=== PATIENT | female | born 1965 | race Caucasian/White ===

== ENCOUNTER 2017-05-12 17:46 | Inpatient (IN) | payer BC ==
[~2017-05-12] VITALS: Ht 175.3 cm; Wt 104.5 kg
[~2017-05-12 17:46] MED LIST: AMPH30TA3 PO; CYCL-1 PO; IBUP-1986 PO; PANT-47 PO
[2017-05-12 19:04] LABS: URINE HCG NEGATIVE (NEG)
[2017-05-12 19:22] LABS: BASOPHILS % (AUTO) 0.2 % (0-1); EOSINOPHILS # (AUTO) 0.4 X10'3 (0-0.9); EOSINOPHILS % (AUTO) 2.9 % (0-6); HEMATOCRIT 46.2 % (35.0-45.0); HEMOGLOBIN 15.7 g/dl (12.0-16.0); LYMPHOCYTES # (AUTO) 2.2 X10'3 (1.1-4.8); LYMPHOCYTES % (AUTO) 17.7 % (21-51); MEAN CORPUSCULAR HEMOGLOBIN 29.7 PG (27.0-31.0); MEAN CORPUSCULAR VOLUME 87.2 FL (78-98); MEAN PLATELET VOLUME 8.2 FL (7.4-10.4); MONOCYTES # (AUTO) 1.1 X10'3 (0-0.9); MONOCYTES % (AUTO) 8.3 % (2-12); NEUTROPHILS % (AUTO) 70.9 % (42-75); PLATELET COUNT 341 X10'3 (140-440); RED BLOOD COUNT 5.29 X10'6 (4.20-5.60); WHITE BLOOD COUNT 12.7 X10'3 (4.5-11.0)
[2017-05-12 19:22] LABS: CLARITY,URINE CLEAR (Clear); GLUCOSE, URINE NEGATIVE (Neg); KETONES,URINE TRACE mg/dl (Neg); LEUKOCYTE ESTERASE ,URINE NEGATIVE (Neg); NITRITES, URINE NEGATIVE (Neg); OCCULT BLOOD,URINE SMALL (Neg); PH,URINE 5.5 (4.8-8.0); PROTEIN,URINE NEGATIVE (Neg); UROBILINOGEN,URINE 0.2 E.U/dL (0.2-1.0)
[2017-05-12 19:31] LABS: PARTIAL THROMBOPLASTIN TIME 29 SECONDS (22-32)
[2017-05-12 19:33] LABS: UA COLLECTION TYPE CLN CATCH MIDSTREAM
[2017-05-12 19:34] LABS: ALANINE AMINOTRANSFERASE 70 U/L (12-78); ALBUMIN 3.9 G/DL (3.4-5.0); ALBUMIN/GLOBULIN RATIO 0.9 (1.1-1.5); ALKALINE PHOSPHATASE 90 IU/L (46-116); ANION GAP 11 (8-16); ASPARTATE AMINO TRANSFERASE 24 U/L (10-37); BILIRUBIN,TOTAL 1.2 MG/DL (0.1-1.0); BLOOD UREA NITROGEN 16 MG/DL (7-18); BUN/CREATININE RATIO 15.5 (6.6-38.0); CALCIUM 9.5 MG/DL (8.5-10.1); CHLORIDE 98 MMOL/L (99-107); CREATININE 1.03 MG/DL (0.40-0.90); GLUCOSE 137 MG/DL (70-104); LIPASE 84 U/L (73-393); MAGNESIUM 1.9 MG/DL (1.5-2.4); SODIUM 134 MMOL/L (135-145); TOTAL PROTEIN 8.4 G/DL (6.4-8.2); eGFR 56 ML/MIN
[2017-05-12 19:38] LABS: COLOR,URINE DARK YELLOW (Yellow)
[2017-05-12 19:39] LABS: BACTERIA,URINE FEW /HPF (Neg); MUCUS STRANDS MANY /LPF (Neg); RBC,URINE 0-2 /HPF (0-2); SQUAMOUS EPITHELIAL CELL,UR FEW /LPF (FEW); WBC,URINE 0-4 /HPF (0-4)
[2017-05-12] MEDS ORDERED: dicyclomine 10 MG capsule PO ONE (21:15)
[2017-05-12] MEDS ORDERED: normal saline 1000ml 1,000 ML IV ONE (21:38)
[2017-05-12] MEDS ORDERED: normal saline 1000ML IV soln IVB ONE (21:40)
[2017-05-12] MEDS ORDERED: morphine 4 MG/ML inj SYRINge IV ONE (21:40)
[2017-05-12] MEDS: diatr meglu/diatrizoate 30ml oral sol.-(3 dose) bottle PO SCH (21:59)
[2017-05-12] MEDS ORDERED: ondansetron/PF 4mg/2ml inj IV PRN (23:00)
[2017-05-12] MEDS: normal saline 1000ml 1,000 ML IV SCH (23:09)
[2017-05-12 23:20] LABS: OCCULT BLOOD STOOL NEGATIVE (Neg)
[2017-05-13 01:05] VITALS: BP 144/72
[2017-05-13] MEDS: morphine 4 MG/ML inj SYRINge IV PRN ×3 (01:15→19:22)
[2017-05-13 04:34] LABS: BASOPHILS % (AUTO) 0.3 % (0-1); EOSINOPHILS # (AUTO) 0.5 X10'3 (0-0.9); EOSINOPHILS % (AUTO) 4.9 % (0-6); HEMATOCRIT 38.5 % (35.0-45.0); HEMOGLOBIN 13.6 g/dl (12.0-16.0); LYMPHOCYTES # (AUTO) 2.5 X10'3 (1.1-4.8); LYMPHOCYTES % (AUTO) 25.8 % (21-51); MEAN CORPUSCULAR HEMOGLOBIN 30.7 PG (27.0-31.0); MEAN CORPUSCULAR HGB CONC 35.5 % (33.0-36.5); MEAN CORPUSCULAR VOLUME 86.6 FL (78-98); MEAN PLATELET VOLUME 8.1 FL (7.4-10.4); MONOCYTES # (AUTO) 0.9 X10'3 (0-0.9); MONOCYTES % (AUTO) 9.5 % (2-12); NEUTROPHILS # (AUTO) 5.8 X10'3 (1.8-7.7); NEUTROPHILS % (AUTO) 59.5 % (42-75); PLATELET COUNT 285 X10'3 (140-440); RED BLOOD COUNT 4.44 X10'6 (4.20-5.60); RED CELL DISTRIBUTION WIDTH 12.9 % (11.5-14.5); WHITE BLOOD COUNT 9.8 X10'3 (4.5-11.0)
[2017-05-13 05:07] LABS: ALBUMIN 3.2 G/DL (3.4-5.0); ANION GAP 10 (8-16); BLOOD UREA NITROGEN 13 MG/DL (7-18); CALCIUM 8.6 MG/DL (8.5-10.1); CHLORIDE 103 MMOL/L (99-107); CREATININE 0.81 MG/DL (0.40-0.90); GLUCOSE 117 MG/DL (70-104); POTASSIUM 3.4 MMOL/L (3.5-5.1); SODIUM 138 MMOL/L (135-145); TOTAL CARBON DIOXIDE 24.6 MMOL/L (24-32); eGFR 74 ML/MIN
[2017-05-13 06:30] VITALS: BP 121/62
[2017-05-13] MEDS: diatr meglu/diatrizoate 30ml oral sol.-(3 dose) bottle PO SCH ×2 (09:45→12:20)
[2017-05-13 10:35] VITALS: BP 122/64
[2017-05-13] MEDS: normal saline 1000ml 1,000 ML IV SCH (10:51)
[2017-05-13] MEDS ORDERED: iohexol 300mg/ml 100ml inj. ONE (12:23)
[2017-05-13] MEDS ORDERED: PANT40TA4 PO (12:28)
[2017-05-13] MEDS ORDERED: IBUP-2264 PO (12:28)
[2017-05-13] MEDS ORDERED: CYCL10TA26 PO (12:28)
[2017-05-13] MEDS ORDERED: NO HOME MEDS (14:57)
[2017-05-13] MEDS ORDERED: magnesium 4gm in 100ml NS 100 ML IV PRN (15:30)
[2017-05-13] MEDS ORDERED: magnesium Cl slow-release 64mg tablet PO PRN (15:30)
[2017-05-13] MEDS ORDERED: potassium Cl 40MEQ/NS 500ml 500 ML IV PRN ×2 (15:30)
[2017-05-13] MEDS ORDERED: magnesium 2GM in 50ml NS 50 ML IV PRN (15:30)
[2017-05-13] MEDS ORDERED: potassium Cl 20 mEq SR tablet PO PRN ×2 (15:30)
[2017-05-13] MEDS: metroNIDAZOLE-Flagyl 500mg/NS 100 ML IV SCH (17:06)
[2017-05-13 18:00] VITALS: BP 132/72
[2017-05-13] MEDS: levoFLOXACIN-Levaquin 500mg/D5 100 ML IV SCH (19:21)
[2017-05-13] MEDS: heparin, porcine 5000 units/ml vial SQ SCH (19:21)
[2017-05-13 22:38] VITALS: BP 124/82
[2017-05-13] MEDS: Potassium Cl inj 20 MEQ in normal saline 1000ml 1,000 ML IV SCH (23:22)
[2017-05-14] MEDS: metroNIDAZOLE-Flagyl 500mg/NS 100 ML IV SCH ×2 (00:08→07:57)
[2017-05-14] MEDS: morphine 4 MG/ML inj SYRINge IV PRN ×2 (04:49→20:34)
[2017-05-14 05:30] VITALS: BP 123/75
[2017-05-14 06:18] LABS: BASOPHILS % (AUTO) 0.5 % (0-1); EOSINOPHILS # (AUTO) 0.5 X10'3 (0-0.9); EOSINOPHILS % (AUTO) 5.4 % (0-6); HEMATOCRIT 36.5 % (35.0-45.0); HEMOGLOBIN 12.5 g/dl (12.0-16.0); LYMPHOCYTES # (AUTO) 1.8 X10'3 (1.1-4.8); LYMPHOCYTES % (AUTO) 19.6 % (21-51); MEAN CORPUSCULAR HEMOGLOBIN 29.8 PG (27.0-31.0); MEAN CORPUSCULAR HGB CONC 34.2 % (33.0-36.5); MEAN CORPUSCULAR VOLUME 87.1 FL (78-98); MEAN PLATELET VOLUME 7.8 FL (7.4-10.4); MONOCYTES # (AUTO) 0.6 X10'3 (0-0.9); MONOCYTES % (AUTO) 6.7 % (2-12); NEUTROPHILS # (AUTO) 6.3 X10'3 (1.8-7.7); NEUTROPHILS % (AUTO) 67.8 % (42-75); PLATELET COUNT 274 X10'3 (140-440); RED BLOOD COUNT 4.19 X10'6 (4.20-5.60); RED CELL DISTRIBUTION WIDTH 13.2 % (11.5-14.5); WHITE BLOOD COUNT 9.3 X10'3 (4.5-11.0)
[2017-05-14 06:28] LABS: ALBUMIN 2.9 G/DL (3.4-5.0); ANION GAP 8 (8-16); BLOOD UREA NITROGEN 8 MG/DL (7-18); BUN/CREATININE RATIO 11.1 (6.6-38.0); CALCIUM 8.4 MG/DL (8.5-10.1); CHLORIDE 107 MMOL/L (99-107); CREATININE 0.72 MG/DL (0.40-0.90); GLUCOSE 104 MG/DL (70-104); MAGNESIUM 1.8 MG/DL (1.5-2.4); POTASSIUM 3.9 MMOL/L (3.5-5.1); SODIUM 140 MMOL/L (135-145); TOTAL CARBON DIOXIDE 24.8 MMOL/L (24-32); eGFR 85 ML/MIN
[2017-05-14] MEDS: heparin, porcine 5000 units/ml vial SQ SCH ×2 (07:57→20:29)
[2017-05-14] MEDS: Potassium Cl inj 20 MEQ in normal saline 1000ml 1,000 ML IV SCH (07:57)
[2017-05-14 09:02] LABS: C DIFF ANTIGEN NEGATIVE (NEGATIVE); C DIFF SPECIMEN=DIARRHEA? ACCEPTABLE; C DIFFICILE TOXINS A&B NEGATIVE (Neg)
[2017-05-14] MEDS: levoFLOXACIN-Levaquin 500mg/D5 100 ML IV SCH (09:57)
[2017-05-14] MEDS: metroNIDAZOLE 500mg tablet PO SCH (16:25)
[2017-05-14] MEDS: diphenoxylate/atropine tablet (Lomotil) PO SCH ×2 (16:51→20:29)
[2017-05-14 18:00] VITALS: BP 125/82
[2017-05-14 22:00] VITALS: BP 130/71
[2017-05-15] MEDS: metroNIDAZOLE 500mg tablet PO SCH ×2 (00:05→10:05)
[2017-05-15] MEDS: Potassium Cl inj 20 MEQ in normal saline 1000ml 1,000 ML IV SCH (02:37)
[2017-05-15 05:50] LABS: ALBUMIN 2.9 G/DL (3.4-5.0); ANION GAP 8 (8-16); BLOOD UREA NITROGEN 8 MG/DL (7-18); CALCIUM 8.7 MG/DL (8.5-10.1); CHLORIDE 108 MMOL/L (99-107); GLUCOSE 113 MG/DL (70-104); POTASSIUM 3.8 MMOL/L (3.5-5.1); SODIUM 141 MMOL/L (135-145); TOTAL CARBON DIOXIDE 24.7 MMOL/L (24-32); eGFR 75 ML/MIN
[2017-05-15 06:00] VITALS: BP 109/67
[2017-05-15 08:42] VITALS: BP 119/62
[2017-05-15 10:00] VITALS: BP 125/60
[2017-05-15] MEDS: diphenoxylate/atropine tablet (Lomotil) PO SCH ×2 (10:05→13:21)
[2017-05-15] MEDS: heparin, porcine 5000 units/ml vial SQ SCH (10:05)
[2017-05-15] MEDS ORDERED: METR500T4 PO (10:54)
[2017-05-15] MEDS ORDERED: DIPH-629 PO (10:54)
[2017-05-15] MEDS ORDERED: LEVO500T89 PO (10:54)
[2017-05-15] MEDS ORDERED: HYDR-569 PO (10:54)
[2017-05-15] MEDS ORDERED: levoFLOXACIN 500mg tablet PO SCH (11:00)
== END 2017-05-15 15:50 | disposition home or self-care (01) | DRG 392 ==
LOC: ER 17:46 → ED HOLD 22:58 → EDBEDREQ 05-13 00:26 → ORTHO 4S 05-13 01:00
PROVIDERS: ADMIT Family Medicine; ATTEND Internal Medicine
PROC: BW211ZZ Computerized Tomography (CT Scan) of Abdomen and Pelvis using Low Osmolar Contrast (ICD-10-PCS; principal; 2017-05-13)
DX: K52.9 Noninfective gastroenteritis and colitis, unspecified (principal); E87.1 Hypo-osmolality and hyponatremia; K56.7 Ileus, unspecified; I10 Essential (primary) hypertension; E86.0 Dehydration; J45.909 Unspecified asthma, uncomplicated; E87.6 Hypokalemia; N28.9 Disorder of kidney and ureter, unspecified; Z88.0 Allergy status to penicillin; Z88.1 Allergy status to other antibiotic agents; Z88.6 Allergy status to analgesic agent; Z88.8 Allergy status to other drugs, medicaments and biological substances; Z79.899 Other long term (current) drug therapy; Z82.49 Family history of ischemic heart disease and other diseases of the circulatory system; Z90.710 Acquired absence of both cervix and uterus; Z90.49 Acquired absence of other specified parts of digestive tract
CPT/HCPCS: 36415; 74018; 74022; 74177; 80048; 80053; 81001; 81025; 82272; 83690; 83735; 85025; 85610; 85730; 86885; 86900; 86901; 87045; 87046; 87070; 87324; 87449; 89055; 96374; 99285; J1644; J1956; J2270; J3480; J3490; J7030; Q9963; Q9967

== ENCOUNTER 2018-02-07 15:02 | Emergency (ER) | payer BC ==
[~2018-02-07] VITALS: Ht 175.3 cm; Wt 109.0 kg
[~2018-02-07 15:02] MED LIST changes: -AMPH30TA3 PO; -CYCL-1 PO; +DIPH-629 PO; +HYDR-4383 PO; -IBUP-1986 PO; +LEVO500T89 PO; +METR-211 PO; -PANT-47 PO
[2018-02-07 15:17] VITALS: BP 161/92
== END 2018-02-07 16:11 | disposition home or self-care (01) ==
LOC: ER 15:02
DX: M25.562 Pain in left knee (principal); I10 Essential (primary) hypertension; J45.909 Unspecified asthma, uncomplicated; Z98.890 Other specified postprocedural states; Z88.0 Allergy status to penicillin; Z88.5 Allergy status to narcotic agent; X58.XXXA Exposure to other specified factors, initial encounter; Y93.89 Activity, other specified; Y92.89 Other specified places as the place of occurrence of the external cause; Y99.8 Other external cause status
CPT/HCPCS: 73564; 99283